=== PATIENT | male | born 1960 | race Two or more races ===

== ENCOUNTER 2023-02-19 13:05 | Inpatient (IN) | payer OTHER ==
[~2023-02-19] VITALS: Ht 162.6 cm; Wt 136.3 kg
[~2023-02-19 13:05] MED LIST: ASPI81CH74 PO; ATOR40TA52 PO; CARV12.544 PO; DIGO0.12 PO; FURO40TA4 PO; PANT40TA2 PO
[2023-02-19] MEDS ORDERED: SODIUM CHLORIDE 0.9% 1,000 ML IV ONE ×2 (13:15)
[2023-02-19] MEDS ORDERED: THIAMINE 100mg/ml INJ (200mg/2ml VIAL) IV ONE (13:15)
[2023-02-19] MEDS ORDERED: LORazepam 2MG/ML-1ML VIAL IV ONE (13:45)
[2023-02-19 15:00] LABS: Basophils # (auto) 0.1 10 ^3/uL (0-0.2); Basophils % (auto) 0.9 % (0.0-2.0); Eosinophils # (auto) 0.1 10 ^3/uL (0-0.8); Eosinophils % (auto) 0.9 % (0.0-7.0); Hemoglobin 16.7 g/dL (13.5-17.5); Lymphocytes % (auto) 25.1 % (10.0-50.0); Mean Corpuscular Hemoglobin 30.9 pg (28.0-32.0); Mean Corpuscular Hgb Conc. 34.1 g/dL (32.0-36.0); Mean Corpuscular Volume 90.5 fL (80.0-100.0); Monocytes # (auto) 0.7 10 ^3/uL (0-1.3); Monocytes % (auto) 9.1 % (0.0-12.0); Neutrophils # (auto) 5.1 10 ^3/uL (1.6-8.6); Nucleated Red Blood Cells % 0.3 %; Red Blood Cells 5.42 10^6/uL (4.5-5.90); Red Cell Distribution Width 13.6 % (11.8-14.3); White Blood Cell 7.9 10^3/uL (4.4-10.8)
[2023-02-19 15:19] LABS: Albumin 3.4 g/dL (3.4-5.0); BUN/Creatinine Ratio 14.7 (10.0-20.0); Calcium 9.7 mg/dL (8.5-10.1); Potassium 4.8 mmol/L (3.5-5.1)
[2023-02-19 15:24] LABS: Bilirubin, Total 0.4 mg/dL (0.2-1.0); Total Protein 6.4 g/dL (6.4-8.2)
[2023-02-19] MEDS ORDERED: MULTIPLE VITAMIN TAB PO ONE (17:15)
[2023-02-19] MEDS ORDERED: LORazepam 2MG/ML-1ML VIAL IV PRN (17:15)
[2023-02-19] MEDS ORDERED: FOLIC ACID 1 MG TAB PO ONE (17:15)
[2023-02-19] MEDS: SODIUM CHLORIDE 0.9% 1,000 ML IV SCH (17:15)
[2023-02-19] MEDS ORDERED: ONDANSETRON HCL 4 MG/2 ML VIAL IV PRN (17:15)
[2023-02-19] MEDS ORDERED: NITROGLYCERIN 0.4 MG SL TAB SL PRN (17:15)
[2023-02-19] MEDS ORDERED: ACETAMINOPHEN 325 MG TAB PO PRN ×2 (17:15)
[2023-02-19] MEDS ORDERED: DIGO0.25 (18:38)
[2023-02-19] MEDS ORDERED: METO1TAB9 (18:38)
[2023-02-19] MEDS ORDERED: METF-869 PO (18:38)
[2023-02-19] MEDS ORDERED: FEXO-131 (18:38)
[2023-02-19] MEDS ORDERED: APIX5TAB PO (18:38)
[2023-02-19] MEDS ORDERED: LOS25T PO (18:38)
[2023-02-19] MEDS ORDERED: DEXTROSE (50%) 50ML SYRG IV PRN (19:00)
[2023-02-19] MEDS ORDERED: HYDROcodone-ACET 5/325MG TAB PO PRN (20:15)
[2023-02-19 20:21] LABS: INR 1.08 (0.9-1.15); Partial Thromboplastin Time 29.1 sec (24.6-33.4)
[2023-02-19 20:22] LABS: Amylase 37 U/L (25-115); Lipase 188 U/L (73-393)
[2023-02-19 20:26] LABS: Cholesterol 146 mg/dL (< 200)
[2023-02-19 20:29] LABS: HDL Cholesterol 41 mg/dL (40-59); LDL Cholesterol 82 mg/dL (< 100); Triglycerides 304 mg/dL (< 150)
[2023-02-19 21:38] LABS: Urine Bacteria FEW /hpf (None Seen); Urine Blood Negative /uL (Negative); Urine Specific Gravity 1.011 (1.001-1.035); Urine WBC 1 /hpf (0 - 3)
[2023-02-19] MEDS: InsuLIN REG 1unit/0.01ml Soln (100units/ml) SC SCH (22:00)
[2023-02-19] MEDS: ACCU-CHEK COMFORT CURVE STRIP VI SCH (22:00)
[2023-02-19] MEDS ORDERED: metFORMIN HYDROCHLORIDE 500 MG TAB PO SCH (22:00)
[2023-02-19] MEDS: CARVEDILOL 12.5 MG TAB PO SCH (22:00)
[2023-02-19 22:03] LABS: Amphetamine Screen, Urine NEGATIVE (NEGATIVE); Barbiturate Scree,Urine NEGATIVE (NEGATIVE); Benzodiazephine Screen, Urine NEGATIVE (NEGATIVE); Cannabinoid Screen, Urine NEGATIVE (NEGATIVE); Cocaine Screen, Urine NEGATIVE (NEGATIVE); Opiate Scree,Urine NEGATIVE (NEGATIVE); Phencyclidine Screen, Urine NEGATIVE (NEGATIVE)
[2023-02-19] MEDS: PANTOPRAZOLE 40 MG TAB PO SCH (22:48)
[2023-02-19] MEDS: APIXABAN 5 MG TAB PO SCH (22:48)
[2023-02-20] MEDS: InsuLIN REG 1unit/0.01ml Soln (100units/ml) SC SCH ×2 (06:09→11:30)
[2023-02-20] MEDS: ACCU-CHEK COMFORT CURVE STRIP VI SCH ×2 (06:09→12:35)
[2023-02-20] MEDS: SODIUM CHLORIDE 0.9% 1,000 ML IV SCH (06:43)
[2023-02-20 06:57] LABS: Basophils # (auto) 0.1 10 ^3/uL (0-0.2); Basophils % (auto) 0.6 % (0.0-2.0); Eosinophils # (auto) 0.1 10 ^3/uL (0-0.8); Eosinophils % (auto) 1.1 % (0.0-7.0); Hematocrit 47.6 % (41.0-53.0); Lymphocytes # (auto) 1.9 10 ^3/uL (0.4-5.4); Lymphocytes % (auto) 23.3 % (10.0-50.0); Mean Corpuscular Hemoglobin 30.4 pg (28.0-32.0); Mean Corpuscular Hgb Conc. 33.6 g/dL (32.0-36.0); Mean Corpuscular Volume 90.6 fL (80.0-100.0); Monocytes # (auto) 0.8 10 ^3/uL (0-1.3); Monocytes % (auto) 9.8 % (0.0-12.0); Neutrophils # (auto) 5.2 10 ^3/uL (1.6-8.6); Neutrophils % (auto) 65.2 % (37.0-80.0); Nucleated Red Blood Cells % 0.3 %; Red Blood Cells 5.26 10^6/uL (4.5-5.90); Red Cell Distribution Width 13.7 % (11.8-14.3)
[2023-02-20 07:18] LABS: Albumin 3.3 g/dL (3.4-5.0); Calcium 9.7 mg/dL (8.5-10.1); Potassium 4.8 mmol/L (3.5-5.1)
[2023-02-20 07:22] LABS: Bilirubin, Total 0.9 mg/dL (0.2-1.0); Total Protein 6.2 g/dL (6.4-8.2)
[2023-02-20] MEDS ORDERED: THIAMINE HCL 100 MG TAB PO SCH (10:00)
[2023-02-20] MEDS ORDERED: FUROSEMIDE 40 MG TAB PO SCH (10:00)
[2023-02-20] MEDS ORDERED: LOSARTAN POTASSIUM 25 MG TAB PO SCH (10:00)
[2023-02-20] MEDS ORDERED: DIGOXIN 0.25 MG TAB PO SCH (10:00)
[2023-02-20] MEDS ORDERED: MULTIPLE VITAMIN TAB PO SCH ×2 (10:00)
[2023-02-20] MEDS ORDERED: ATORVASTATIN 20 MG TAB PO SCH (10:00)
[2023-02-20] MEDS ORDERED: FOLIC ACID 1 MG TAB PO SCH (10:00)
[2023-02-20] MEDS: CARVEDILOL 12.5 MG TAB PO SCH (10:31)
[2023-02-20] MEDS: APIXABAN 5 MG TAB PO SCH (10:32)
[2023-02-20] MEDS: PANTOPRAZOLE 40 MG TAB PO SCH (10:33)
[2023-02-20 12:50] VITALS: BP 135/70
[2023-02-20 15:52] LABS: Folate (Folic Acid) 23.31 ng/mL (5.38-24)
[2023-02-21 09:42] LABS: Hepatitis B Surface Antibody Positive (Negative)
[2023-02-21 10:20] LABS: Hepatitis A Total Antibody Negative (Negative)
[2023-02-21 11:05] LABS: Hepatitis C Antibody Negative (Negative)
== END 2023-02-20 12:55 | disposition home or self-care (01) | DRG 92 ==
LOC: ER 13:05 → EDBD 13:05 → OVERFLOW 18:38
PROVIDERS: ADMIT Nurse Practitioner Family; ATTEND Internal Medicine
DX: G92.8 Other toxic encephalopathy (principal); Z68.43 Body mass index [BMI] 50.0-59.9, adult; E11.9 Type 2 diabetes mellitus without complications; E66.01 Morbid (severe) obesity due to excess calories; F10.129 Alcohol abuse with intoxication, unspecified; I10 Essential (primary) hypertension; I48.91 Unspecified atrial fibrillation; Z20.822 Contact with and (suspected) exposure to COVID-19; Y90.9 Presence of alcohol in blood, level not specified; E78.5 Hyperlipidemia, unspecified; Z79.4 Long term (current) use of insulin; Z86.73 Personal history of transient ischemic attack (TIA), and cerebral infarction without residual deficits
CPT/HCPCS: 36415; 70450; 71045; 71250; 76705; 80053; 80061; 80162; 80307; 80320; 81001; 82140; 82150; 82607; 82746; 82962; 82977; 83036; 83690; 83735; 83880; 84443; 84484; 85025; 85610; 85730; 86704; 86706; 86708; 86803; 87340; 87426; 93886; 96361; 96374; 96375; G0378

== ENCOUNTER 2023-04-29 18:25 | Inpatient (IN) | payer OTHER ==
[~2023-04-29] VITALS: Ht 182.9 cm; Wt 160.0 kg
[~2023-04-29 18:25] MED LIST changes: +APIX5TAB PO; +DIGO0.25; +FEXO-131; +LOS25T PO; +METF-869 PO; +METO1TAB9
[2023-04-29 20:04] LABS: Basophils # (auto) 0.1 10 ^3/uL (0-0.2); Basophils % (auto) 0.9 % (0.0-2.0); Eosinophils # (auto) 0 10 ^3/uL (0-0.8); Eosinophils % (auto) 0.4 % (0.0-7.0); Hematocrit 52.5 % (41.0-53.0); Hemoglobin 17.4 g/dL (13.5-17.5); Lymphocytes # (auto) 2.4 10 ^3/uL (0.4-5.4); Lymphocytes % (auto) 27.7 % (10.0-50.0); Mean Corpuscular Hemoglobin 30.1 pg (28.0-32.0); Mean Corpuscular Hgb Conc. 33.2 g/dL (32.0-36.0); Mean Corpuscular Volume 90.6 fL (80.0-100.0); Monocytes # (auto) 0.8 10 ^3/uL (0-1.3); Monocytes % (auto) 9.7 % (0.0-12.0); Neutrophils # (auto) 5.3 10 ^3/uL (1.6-8.6); Neutrophils % (auto) 61.3 % (37.0-80.0); Nucleated Red Blood Cells % 0.1 %; Red Blood Cells 5.79 10^6/uL (4.5-5.90); Red Cell Distribution Width 14.1 % (11.8-14.3); White Blood Cell 8.7 10^3/uL (4.4-10.8)
[2023-04-29 20:19] LABS: INR 1.08 (0.9-1.15); Partial Thromboplastin Time 28.5 sec (24.6-33.4)
[2023-04-29 20:38] LABS: Albumin 3.9 g/dL (3.4-5.0); Calcium 11.3 mg/dL (8.5-10.1)
[2023-04-29 20:47] LABS: BUN/Creatinine Ratio 12.3 (10.0-20.0); Bilirubin, Total 0.4 mg/dL (0.2-1.0); Total Protein 7.5 g/dL (6.4-8.2)
[2023-04-29] MEDS ORDERED: dilTIAZem 25 MG/5 ML VIAL IV ONE ×2 (21:30→23:45)
[2023-04-29 21:40] LABS: Lactic Acid w/Reflex 2.9 mmol/L (0.4-2.0)
[2023-04-29] MEDS ORDERED: IOHEXOL 350 MG/ML 100ML IJ ONE (22:42)
[2023-04-29] MEDS ORDERED: SODIUM CHLORIDE 0.9% 1,000 ML IV ONE (22:45)
[2023-04-30] MEDS ORDERED: FOLIC ACID 1 MG, MULTIPLE VITAMIN 10 ML, MAGNESIUM SULF SDV 50% 8 MEQ, THIAMINE INJ 100... INJ SCH ×10 (00:15→12:00)
[2023-04-30] MEDS ORDERED: DEXTROSE (50%) 50ML SYRG IV PRN (02:45)
[2023-04-30] MEDS ORDERED: ONDANSETRON HCL 4 MG/2 ML VIAL IV PRN (02:45)
[2023-04-30] MEDS ORDERED: MORPHINE SULFATE INJ 2 MG/ml SYRG IV PRN (02:45)
[2023-04-30] MEDS ORDERED: chlordiazePOXIDE HCL 25 MG CAP PO PRN (02:45)
[2023-04-30] MEDS ORDERED: NITROGLYCERIN 0.4 MG SL TAB SL PRN (02:45)
[2023-04-30 05:18] LABS: Amphetamine Screen, Urine NEGATIVE (NEGATIVE); Barbiturate Scree,Urine NEGATIVE (NEGATIVE); Benzodiazephine Screen, Urine POSITIVE (NEGATIVE); Cannabinoid Screen, Urine NEGATIVE (NEGATIVE)
[2023-04-30 05:29] LABS: Cocaine Screen, Urine NEGATIVE (NEGATIVE); Opiate Scree,Urine NEGATIVE (NEGATIVE); Phencyclidine Screen, Urine NEGATIVE (NEGATIVE)
[2023-04-30] MEDS ORDERED: VANCOMYCIN 1GM/250ML 250 ML IV SCH ×2 (06:30→14:30)
[2023-04-30] MEDS: ACCU-CHEK COMFORT CURVE STRIP VI SCH ×2 (06:48→11:43)
[2023-04-30] MEDS: InsuLIN REG 1unit/0.01ml Soln (100units/ml) SC SCH ×2 (06:49→11:30)
[2023-04-30] MEDS ORDERED: CLINDAMYCIN 900MG IV 50 ML IV SCH (07:30)
[2023-04-30 07:57] LABS: Urine Bacteria NONE SEEN /hpf (None Seen); Urine Blood Negative /uL (Negative); Urine Specific Gravity 1.045 (1.001-1.035); Urine WBC <1 /hpf (0 - 3)
[2023-04-30] MEDS ORDERED: PIPERACILLIN-TAZOB 3.375GM 100 ML IV SCH (08:30)
[2023-04-30] MEDS ORDERED: VANCOMYCIN PER PHARMACY 0 MG IV SCH (08:45)
[2023-04-30] MEDS ORDERED: DIGOXIN 0.25 MG TAB PO SCH (10:00)
[2023-04-30] MEDS ORDERED: APIXABAN 5 MG TAB PO SCH (10:00)
[2023-04-30] MEDS ORDERED: LOSARTAN POTASSIUM 50 MG TAB PO SCH (10:00)
[2023-04-30] MEDS ORDERED: PANTOPRAZOLE 40 MG TAB PO SCH (10:00)
[2023-04-30] MEDS ORDERED: METOPROLOL TARTRATE 50 MG TAB PO SCH (10:00)
[2023-04-30 12:00] VITALS: BP 111/69
[2023-04-30] MEDS ORDERED: FOLIC ACID 1 MG, MULTIPLE VITAMIN 10 ML, MAGNESIUM SULF SDV 50% 8 MEQ, THIAMINE INJ 100... INJ ONE ×5 (12:00)
[2023-04-30] MEDS ORDERED: ATORVASTATIN 20 MG TAB PO SCH (22:00)
== END 2023-04-30 14:40 | disposition home or self-care (01) | DRG 92 ==
LOC: EDBD 18:25 → ER 18:31 → TELE 04-30 02:35
PROVIDERS: ADMIT Nurse Practitioner; ATTEND Internal Medicine
DX: G92.8 Other toxic encephalopathy (principal); D68.9 Coagulation defect, unspecified; M46.26 Osteomyelitis of vertebra, lumbar region; Z68.42 Body mass index [BMI] 45.0-49.9, adult; I48.91 Unspecified atrial fibrillation; E66.01 Morbid (severe) obesity due to excess calories; E78.5 Hyperlipidemia, unspecified; F10.129 Alcohol abuse with intoxication, unspecified; I10 Essential (primary) hypertension; Y90.8 Blood alcohol level of 240 mg/100 ml or more; E11.69 Type 2 diabetes mellitus with other specified complication; Z86.73 Personal history of transient ischemic attack (TIA), and cerebral infarction without residual deficits; Z79.899 Other long term (current) drug therapy
CPT/HCPCS: 36415; 70450; 70486; 71045; 71260; 72125; 73080; 74177; 80053; 80307; 80320; 81001; 82140; 82962; 83605; 83690; 83880; 85025; 85379; 85610; 85730; 93005; 96361; 96365; 96375; 96376; G0378; J2543